=== PATIENT | female | born 1995 | race Hispanic/Latino ===

== ENCOUNTER 2024-01-30 06:49 | Emergency (ER) | payer SELFPAY ==
--- NOTE | ~2024-01-30 | US_ITS ---
EXAMINATION: US OB <= 14 weeks fetus DATE: 01/30/2024 07:48 INDICATION: Vaginal bleeding in . TECHNIQUE: Real-time transabdominal pelvic ultrasound was performed. COMPARISON: None. FINDINGS: The uterus measures 7.0 x 4.9 x 5.0 cm. There is an intrauterine gestational sac. A yolk sac is ident ified. The crown rump length measures 6 mm, which correlates with an estimated gestational age of 6 weeks and 2 day(s) (+/-) 4 day(s). heart motion is identified measuring 74 beats per eva te (bpm) by M-mode Doppler. The right ovary measures 3.1 x 1.9 x 2.7 cm. The left ovary measures 3.1 x 1.7 x 3.1 cm. There is no free fluid in the pelvis. IMPRESSION: 1. Single living intrauterine gestation with estimated date of delivery of 09/22/24. 2. bradycardia. Reviewed, dictated and finalized at location A. IMPRESSION: 1. Single living intrauterine gestation with estimated date of delivery of 09/04 . 2. bradycardia.
[2024-01-30 07:37] VITALS: BP 118/84; PULSE 81; RESP 16; TEMP 36.8; O2SAT 100
[2024-01-30 07:51] LABS: Basophils Absolute Auto 0.1 K/mm3 (0.0-0.1); Basophils Percent Auto 0.6 % (0.2-1.2); Eosinophils Absolute Auto 0.2 K/mm3 (0-0.3); Eosinophils Percent Auto 2.6 % (0-4.4); Hematocrit 42.9 % (37.0-47.0); Hemoglobin 14.9 g/dL (12.0-15.0); Immature Granulocyte Absolute 0.04 K/mm3 (0.00-0.031); Immature Granulocyte Percent A 0.5 % (0-0.5); Lymphocytes Absolute Auto 2.01 K/mm3 (0.9-3.2); Lymphocytes Percent Auto 24.5 % (18.3-44.2); Mean Corpuscular HGB Conc 34.7 g/dl (32-36); Mean Corpuscular Volume 92.3 fl (80-100); Mean Platelet Volume 10.2 fl (7.4-10.4); Monocytes Absolute Auto 0.4 K/mm3 (0.1-0.6); Monocytes Percent Auto 5.4 % (2.6-8.5); Neutrophils Absolute Auto 5.5 K/mm3 (1.3-6.7); Neutrophils Percent Auto 66.4 % (45.5-73.1); Platelet Count Result 258 k/mm3 (150-375); Red Blood Count 4.65 M/mm3 (4.2-5.4); Red Cell Distribution Width 12.2 % (11.5-14.5); White Blood Count 8.2 K/mm3 (4.5-10.0)
[2024-01-30 08:03] LABS: Alanine Aminotransferase 16 U/L (6-35); Albumin Level 4.3 g/dL (3.5-5.1); Alkaline Phosphatase 65 U/L (38-126); Anion Gap 8 mmol/L (4-12); Aspartate Amino Transferase 21 U/L (14-36); Bilirubin,Total 0.7 mg/dL (0.2-1.3); Blood Urea Nitrogen 10 mg/dL (7-17); Carbon Dioxide 25 mmol/L (22-30); Chloride 106 mmol/L (98-107); Estimated Glomerular Filt Rate > 60; Glucose 93 mg/dL (65-110); Potassium 3.6 mmol/L (3.4-5.0); Sodium 139 mmol/L (137-145)
--- NOTE | 2024-01-30 08:03 | ED_ITS ---
HPI - General Adult General Chief complaint: Vaginal Bleeding Stated complaint: vagnial bleeding, 11 weeks Time Seen by Provider: 01/30/24 07:00 History of Present Illness HPI narrative: Patient is a 28-year-old female who presents ER with vaginal bleeding and . LMP 11/09/2023. Approximately 11 weeks gestation. Began bleeding / spotting yesterday and increased bleeding today. No fevers chills or sweats. Mild lower abdominal cramping. Has not seen an Ob or had an ultrasound. . Related Data Allergies Allergy/AdvReac Type Severity Reaction Status Date / Time No Known Allergies Allergy Verified 01/30/24 07:40 Review of Systems Review of Systems: All systems reviewed & are unremarkable except as noted in HPI and below Constitutional: Constitutional: Reports no additional constitutional complaints Gastrointestinal: Gastrointestinal: Reports no additional gastrointestinal complaints Genitourinary: Genitourinary: Reports abnormal vaginal bleeding, Denies dysur ia, Denies pelvic pain, Denies flank pain and Denies vaginal discharge PMFSH Past Medical History Medical History (Updated 01/30/24 @ 11:38 by Sulaiman Birmingham MD) Healthy female adult Surgical History Surgical History (Updated 01/30/24 @ 08:05 by Sulaiman Birmingham MD) No pertinent past surgical history Exam Narrative: GENERAL: Well-appearing, well-nourished, and in no acute distress. HEAD: Normocephalic, atraumatic. ENT: Mucous membranes moist. CHEST: Clear to auscultation. No respiratory distress. HEART: Regular rate and rhythm. Normal peripheral pulses. ABDOMEN: Soft, nontender, nondistended, normal active bowel sounds. : Normal external genitalia. Speculum exam with moderate amount of blood within the vagina with large clots. Evacuated and cervix is closed with scant blood coming from it. No vaginal discharge. Cervix is not friable. EXTREMITIES: Normal range of motion. No edema. SKIN: Warm, dry, no rash. NEURO: Alert and oriented x3. PSYCH: Normal mood and affect. Course Course Emergency Course: patient informed of lab/imaging results as well as exam findings. Discussed case with Dr. Boss. Needs a follow-up in clinic. O-positive blood type so no RhoGAM. Patient reports she is from out of town and is leaving today. Educated her that she needs a follow-up with her Ob per she lives. We discussed that bradycardia is concerning as well. Vital Signs Vital signs: Vital Signs Temperature 98.2 F 01/30/24 07:37 Pulse Rate 81 01/30/24 07:37 Respiratory Rate 16 01/30/24 07:37 Blood Pressure 118/84 01/30/24 07:37 Pulse Oximetry 100 01/30/24 07:37 Temperature 98.2 F 01/30/24 07:37 Pulse Rate 81 01/30/24 07:37 Respiratory Rate 16 01/30/24 07:37 Blood Pressure 118/84 01/30/24 07:37 Pulse Oximetry 100 01/30/24 07:37 Medical Decision Making Vital Signs Vital Signs: Vital Signs Temperature 98.2 F 01/30/24 07:37 Pulse Rate 81 01/30/24 07:37 Respiratory Rate 16 01/30/24 07:37 Blood Pressure 118/84 01/30/24 07:37 Pulse Oximetry 100 01/30/24 07:37 Temperature 98.2 F 01/30/24 07:37 Pulse Rate 81 01/30/24 07:37 Respiratory Rate 16 01/30/24 07:37 Blood Pressure 118/84 01/30/24 07:37 Pulse Oximetry 100 01/30/24 07:37 Lab Data 01/30/24 07:45 01/30/24 07:45 Labs: Lab Results 01/30/24 01/30/24 01/30/24 Range/Units 07:45 08:57 09:28 WBC 8.2 (4.5-10.0) K/mm3 RBC 4.65 (4.2-5.4) M/mm3 Hgb 14.9 (12.0-15.0) g/dL Hct 42.9 (37.0-47.0) % MCV 92.3 (80-100) fl MCH 32.0 (26-34) pg MCHC 34.7 (32-36) g/dl RDW 12.2 (11.5-14.5) % Plt Count 258 (150-375) k/mm3 MPV 10.2 (7.4-10.4) fl Immature Gran % (Auto) 0.5 (0-0.5) % Neut % (Auto) 66.4 (45.5-73.1) % Lymph % (Auto) 24.5 (18.3-44.2) % [place] % (Auto) 5.4 (2.6-8.5) % Eos % (Auto) 2.6 (0-4.4) % Baso % (Auto) 0.6 (0.2-1.2) % Lymph # (Auto) 2.01 (0.9-3.2) K/mm3 [place] # (Auto) 0.4 (0.1-0.6) K/mm3 Eos # (Auto) 0.2 (0-0.3) K/mm3 Baso # (Auto) 0.1 (0.0-0.1) K/mm3 Abs Immat Gran (auto) 0.04 H (0.00-0.031) K/mm3 Absolute Neuts (auto) 5.5 (1.3-6.7) K/mm3 Absolute Nucleated RBC 0.000 (0.0-0.012) K/mm3 Nucleated RBC % 0.0 (0.0-0.2) % Sodium 139 (137-145) mmol/L Potassium 3.6 (3.4-5.0) mmol/L Chloride 106 (98-107) mmol/L Carbon Dioxide 25 (22-30) mmol/L Anion Gap 8 (4-12) mmol/L BUN 10 (7-17) mg/dL Creatinine 0.60 L (0.7-1.0) mg/dL Estim Creat Clear Calc Not Reportable Estimated GFR > 60 (59 - ) Glucose 93 (65-110) mg/dL Calcium 9.0 (8.4-10.2) mg/dL Total Bilirubin 0.7 (0.2-1.3) mg/dL AST 21 (14-36) U/L ALT 16 (6-35) U/L Alkaline Phosphatase 65 (38-126) U/L Total Protein 8.0 (6.3-8.2) g/dL Albumin 4.3 (3.5-5.1) g/dL Beta HCG, Quant 78350.00 mIU/ML Urine Color Yellow (Yellow) Urine Appearance Clear (Clear) Urine pH 7.5 (5.0-9.0) Ur Specific [place] 1.016 (1.001-1.035) Urine Protein Negative (Negative) mg/dL Urine Glucose (UA) Negative (Negative) mg/dL Urine Ketones Negative (Negative) mg/dL Ur Blood (Man) 3+ H (Negative) Urine Nitrate Negative (Negative) Urine Bilirubin Negative (Negative) Urine Urobilinogen 0.2 (<2.0) mg/dL Add Ur Microanalysis Reviewed Leukocyte Esterase Rfl Negative (Negative) ALYSE/UL Urine RBC 21-50 H (0-2) /hpf Urine WBC 0-5 (0-3) /hpf Ur Squamous Epith Cells Occasional (Few) /hpf Urine Bacteria None seen /hpf Urine Casts 0-2 Blood Type O Positive Antibody Screen Negative Screen Not Reportable Baby's Blood Type Not Reportable Baby's VISHAL Not Reportable Doses of RhIg Required 0 Imaging Data Radiologist's impression: ITS Impressions Ultrasound 01/30/24 07:50 IMPRESSION: 1. Single living intrauterine gestation with estimated date of delivery of 09/22/24. 2. bradycardia. Discharge Plan Discharge Clinical Impression: Threatened Patient Disposition: Home, Self-Care Condition: Stable Instructions: Threatened Miscarriage (ED) Additional Instructions: You are having vaginal bleeding with a . Your blood type is O- positive, your beta hCG level is 16,148. Your hemoglobin is 14.9. Your ultrasound showed a 6 week and 2 day gestational sac with pole with bradycardia. The heart rate was 74 beats per minute. You need to follow-up with your insurance collector for further evaluation. Return the ER if your having bleeding through 1 pad an hour for 3 continuous hours, you develop severe lower abdominal pain, or you lose consciousness. Patient Language: Green[place]ic Follow-up/Referrals: Bernardo Boss MD [Physician] - 3 Days PHYSICIAN,CREW MESS ATTENDANT [Primary Care Provider] -
[2024-01-30 09:13] LABS: Add Urine Microscopic? YES; Appearance Urine Clear (Clear); Bacteria Urine None Seen /hpf; Bilirubin Urine Negative (Negative); Blood Urine 3+ (Negative); Color Urine Yellow (Yellow); Glucose Urine UA Negative (Negative); Ketones Urine Negative (Negative); Leukocyte Esterase Ur Negative LEU/UL (Negative); Need Manual Microscopic Reviewed; Nitrate Urine Negative (Negative); Non Pathogenic Casts 0-2; Protein Urine Negative (Negative); RBC Urine 21-50 /hpf (0-2); Specific Grav Ur 1.016 (1.001-1.035); Squamous Epithelial Cell Urine Occasional /hpf (Few); Urobilinogen Urine 0.2 mg/dL (<2.0); WBC Urine 0-5 /hpf (0-3); pH Urine 7.5 (5.0-9.0)
[2024-01-30 11:58] VITALS: BP 126/86; PULSE 78; RESP 16; TEMP 36.9; O2SAT 100
== END 2024-01-30 11:59 | disposition home or self-care (01) ==
PROVIDERS: Emergency Provider Emergency Medicine
DX: O20.0 Threatened abortion (principal); Z3A.11 11 weeks gestation of pregnancy
CPT/HCPCS: 36415; 76801; 80053; 81001; 84702; 85025; 85461; 86850; 86900; 86901; 99284